=== PATIENT | male | born 1950 | race Caucasian/White ===

== ENCOUNTER 2018-09-26 10:55 | Inpatient (IN) | payer OTHER ==
[~2018-09-26] VITALS: Ht 165.1 cm; Wt 65.8 kg
[2018-09-26] MEDS ORDERED: METFORMIN HCL500 MG PO (11:54)
[2018-09-26] MEDS ORDERED: COZAAR50 MG PO (11:55)
[2018-09-26] MEDS ORDERED: GLIMEPIRIDE4 MG PO (11:55)
[2018-09-26] MEDS ORDERED: LIPITOR40 MG PO (11:55)
[2018-09-26] MEDS ORDERED: LEVO-T25 MCG PO (11:55)
[2018-09-26] MEDS ORDERED: OMEPRAZOLE20 MG PO (11:56)
== END 2018-10-04 08:23 | disposition home or self-care (01) | DRG 708 ==
LOC: SURG 10-02 05:10 → O/R 10-02 05:10 → SURG 10-02 07:00
PROVIDERS: ADMIT Urology
PROC: 0VT00ZZ Resection of Prostate, Open Approach (ICD-10-PCS; 2018-10-02)
PROC: 0VT30ZZ Resection of Bilateral Seminal Vesicles, Open Approach (ICD-10-PCS; 2018-10-02)
PROC: 07TC0ZZ Resection of Pelvis Lymphatic, Open Approach (ICD-10-PCS; principal; 2018-10-02 07:00)
DX: C61 Malignant neoplasm of prostate (principal); N49.0 Inflammatory disorders of seminal vesicle; I10 Essential (primary) hypertension; E11.9 Type 2 diabetes mellitus without complications; E03.8 Other specified hypothyroidism; Z79.4 Long term (current) use of insulin

== ENCOUNTER 2018-12-18 09:37 | Outpatient (CLI) | payer OTHER ==
[~2018-12-18 09:37] MED LIST: COZAAR50 MG PO; GLIMEPIRIDE4 MG PO; LEVO-T25 MCG PO; LIPITOR40 MG PO; METFORMIN HCL500 MG PO; OMEPRAZOLE20 MG PO
== END 2018-12-18 11:33 | disposition home or self-care (01) ==
LOC: LAB 09:37
DX: N30.00 Acute cystitis without hematuria (principal); B96.29 Other Escherichia coli [E. coli] as the cause of diseases classified elsewhere